=== PATIENT | male | born 1950 | race Caucasian/White ===

== ENCOUNTER 2022-05-05 19:48 | Emergency (ER) | payer OTHER ==
[~2022-05-05] VITALS: Ht 162.6 cm; Wt 78.5 kg
[2022-05-05 20:05] VITALS: BP 92/61
[2022-05-05] MEDS ORDERED: ESCI20TA PO (20:21)
[2022-05-05] MEDS ORDERED: LORA-476 PO (20:22)
--- NOTE | 2022-05-05 20:24 | NUR ---
Patient ambulated with strong gait to bed 5, patient on monitor, resting in bed with eyes open, A/Ox4, no s/s of distress, no c/o pain.
--- NOTE | 2022-05-05 20:33 | NUR ---
Patient being evaluated by physician at bedside.
[2022-05-05] MEDS ORDERED: ATA25 PO (20:44)
--- NOTE | 2022-05-05 20:51 | NUR ---
71YR OLD MALE BIB SELF C/O ANXIETY . DENIES PAIN DENIES CP OR SOB . PT STATES HIS ANXIETY IS HAS BEEN FOR A YEAR AND HAS BEEN GETTING WORSE. PMD RX PT LEXAPRO AND ATIVIAN. PT STATES HE STATES DIRECTED EVERYDAY FOR THE LAST 8 MONTHS. FEELS THAT THE MEDICATIONS ARE NOT WORKING. PT IS A&OX4 IRISH SPEAKING ONLY. SKIN WARM DRY AND INTACT. HOB ELEVATED. DENIES SI DENIES HARM TO OTHERS NKDA ANXIETY
[2022-05-05 21:01] VITALS: BP 92/61
--- NOTE | 2022-05-05 21:01 | NUR ---
Patient discharged with v/s stable. Written and verbal after care instructions given and explained. Patient alert, oriented and verbalized understanding of instructions. Ambulatory with steady gait. All questions addressed prior to discharge. ID band removed. Patient advised to follow up with PMD. Rx of ATARAX HCL given.
--- NOTE | 2022-05-05 21:08 | NUR ---
The patient's care was reviewed and supervised by Karen Lazcano RN.
== END 2022-05-05 21:01 | disposition home or self-care (01) ==
LOC: MED 19:48
DX: F41.9 Anxiety disorder, unspecified (principal); F17.200 Nicotine dependence, unspecified, uncomplicated; Z79.899 Other long term (current) drug therapy
CPT/HCPCS: 99283